=== PATIENT | male | born 1990 | race American Indian/Alaskan Native ===

== ENCOUNTER 2020-07-20 08:00 | Outpatient (CLI) | payer OTHER | END 2020-07-20 08:30 | disposition home or self-care (01) | LOC: PPH VACUNA 08:00 | DX: Z23 Encounter for immunization (principal) ==

== ENCOUNTER 2020-08-11 08:00 | Outpatient (CLI) | payer OTHER | END 2020-08-11 08:30 | disposition home or self-care (01) | LOC: PPH VACUNA 08:00 | DX: Z23 Encounter for immunization (principal) ==

== ENCOUNTER 2021-01-09 22:48 | Emergency (ER) | payer OTHER ==
[~2021-01-09] VITALS: Ht 172.7 cm; Wt 104.3 kg
== END 2021-01-10 00:17 | disposition home or self-care (01) ==
LOC: ER 22:48
DX: S61.211A Laceration without foreign body of left index finger without damage to nail, initial encounter (principal); W26.8XXA Contact with other sharp object(s), not elsewhere classified, initial encounter; Y92.89 Other specified places as the place of occurrence of the external cause

== ENCOUNTER 2022-07-12 06:02 | Emergency (ER) | payer OTHER ==
[~2022-07-12] VITALS: Ht 172.7 cm; Wt 104.3 kg
[2022-07-12] MEDS ORDERED: AMOX-CLAV 875-1 EACH PO (09:00)
[2022-07-12] MEDS ORDERED: MEDROLPACK PO (09:02)
[2022-07-12] MEDS ORDERED: BENADRYL ALLERG25 MG PO (09:02)
== END 2022-07-12 10:06 | disposition home or self-care (01) ==
LOC: ER 06:02
DX: K13.79 Other lesions of oral mucosa (principal); Z87.09 Personal history of other diseases of the respiratory system